=== PATIENT | male | born 1985 | race Caucasian/White ===

== ENCOUNTER → 2019-08-09 | Outpatient (CLI) | payer MEDICARE, MEDICAID ==
--- NOTE | 2019-08-09 17:22 | RADIOLOGY REPORT (SQ) ---
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 TECHNIQUE: Following retrograde filling of the colon with barium and air, fluoroscopic spot and over head imaging of the colon was obtained and saved to PACS. LIMITATIONS: None. FINDINGS: Regulatory Technician film demonstrates a nonobstructive bowel gas pattern. Tiny left-sided intrarenal no nobstructive kidney stones are present less than 5 mm in size. Air contrast barium enema was performed. The colon demonstrates smooth stoma type shape without haustral markings from chronic inflammation. Normal caliber rectosigmoid, sigmoid colon, descending colon and splenic flexure. Along the mid transverse colon, a tight stricture is present with luminal opening less than 1 cm in d iameter. Mild dilatation of the ascending colon, hepatic flexure and proximal transverse colon, proximal to th e tight stricture. The cecum is markedly abnormal. There is extrinsic compression of the medial wall of the cecum from chronically inflamed distal ileum with scar tissue. No reflux was achieved into the distal ileum. T here was trace barium tracking into the distal ileum by the end of this study. Review of the most recent CT abdomen pelvis here on 10/08/2010 demonstrated extensive right lower quad rant inflammatory change with tethered distal small bowel loops and possible small bowel to of small bowel fistula formation. IMPRESSION: Extrinsic compression of the medial wall of the cecum, likely related to inflammatory ch anges in the distal ileum. Tight stricture along the mid transverse colon, lumen of the bowel is less than i cm in diameter. Mo re proximal colonic dilatation in the transverse colon is seen. Chronic inflammation throughout the remainder of the colon, with smooth mucosal surface and loss of h austral markings. COMMENT: Quality ID [id number]: Final reports for procedures using fluoroscopy that document radiation exp osure indices, or exposure time and number of fluorographic images (if radiation exposure indices are not available) TECHNICAL DOCUMENTATION: JOB ID: [id number] [employer]- All Rights Reserved Reading location - IP/workstation name: [email or web address]
== END ==
LOC: RAD 09:32
PROVIDERS: ATTEND Internal Medicine Gastroenterology
DX: K50.812 Crohn's disease of both small and large intestine with intestinal obstruction (principal)
CPT/HCPCS: 74280

== ENCOUNTER → 2019-10-26 | Outpatient (CLI) | payer MEDICARE, MEDICAID ==
[2019-10-26 14:14] LABS: ABSOLUTE EOSINOPHILS # (AUTO) 0.1 10^3/uL (0.0-0.6); ABSOLUTE LYMPHOCYTES (AUTO) 2.5 10^3/uL (0.5-4.7); ABSOLUTE MONOCYTES (AUTO) 0.4 10^3/uL (0.1-1.4); ABSOLUTE NEUT (AUTO) 6.3 10^3/uL (1.7-8.2); BASOPHILS % (AUTO) 0.5 % (0-2); EOSINOPHILS % (AUTO) 0.8 % (0-6); HEMATOCRIT 42.4 % (37.9-51.0); HEMOGLOBIN 15.2 g/dL (13.5-17.0); LYMPHOCYTES % (AUTO) 26.9 % (13-45); MEAN CORPUSCULAR HEMOGLOBIN 30.7 pg (27.0-33.4); MEAN CORPUSCULAR HGB CONC 35.8 g/dL (32.0-36.0); MEAN CORPUSCULAR VOLUME 86 fl (80-97); PLATELET COUNT 230 10^3/uL (150-450); RED BLOOD COUNT 4.94 10^6/uL (4.35-5.55); RED CELL DISTRIBUTION WIDTH 13.5 % (11.5-14.0); SEGMENTED NEUTROPHILS % (AUTO) 67.8 % (42-78); TOTAL CELLS COUNTED % (AUTO) 100 %; WHITE BLOOD COUNT 9.3 10^3/uL (4.0-10.5)
[2019-10-26 14:33] LABS: ALBUMIN 4.9 g/dL (3.5-5.0); ALKALINE PHOSPHATASE 55 U/L (38-126); ASPARTATE AMINO TRANSFERASE 30 U/L (17-59); BILIRUBIN,DIRECT 0.2 mg/dL (0.0-0.4); BILIRUBIN,TOTAL 0.8 mg/dL (0.2-1.3); TOTAL PROTEIN 8.5 g/dL (6.3-8.2)
[2019-10-26 14:41] LABS: C-REACTIVE PROTEIN < 5.0 mg/L (<10.0)
== END ==
LOC: OD 13:40
PROVIDERS: ATTEND Physician Assistant
DX: K50.812 Crohn's disease of both small and large intestine with intestinal obstruction (principal); Z79.899 Other long term (current) drug therapy
CPT/HCPCS: 36415; 80076; 85025; 86140